=== PATIENT | male | born 1985 | race Caucasian/White ===

== ENCOUNTER 2019-07-06 14:04 | Emergency (ER) | payer MEDICAID ==
--- NOTE | 2019-07-06 14:34 | ER Document Report ---
ED Medical Screen (RME) - General Chief Complaint: Knee Injury Stated Complaint: LEFT KNEE INJURY/PAIN Time Seen by Provider: 07/06/19 14:27 Notes: Patient is a 34-year-old male who presents emergency department with a chief complaint of left knee pain. Patient reports about 1 week ago he dislocated his left kneecap. Patient reports he immediately put it back in place. Patient reports he did have significant swelling to the area afterwards. Patient reports he is kept his leg elevated and has been icing it. Patient reports intermittent numbness below the kneecap and sometimes numbness up his leg. Patient reports that this morning his leg was purple when compared to the right. Patient reports his left knee feels very wobbly. - Related Data Allergies/Adverse Reactions: No Known Allergies Allergy (Verified 07/06/19 14:19) Home Medications: adderol Past Medical History - Social History Frequency of alcohol use: Rare Drug Abuse: None Physical Exam - Vital signs Vitals: Temp Pulse Resp BP Pulse Ox 98.2 F 97 18 147/96 H 99 07/06/19 14:07/06/19 14:07/06/19 14:07/06/19 14:07/06/19 14:09 - Extremities Notes: Left lower extremity discolored when compared to the right. Patient does have swelling to the left knee as well as the left foot. Patient does have a palpable dorsalis pedis pulse. Course - Re-evaluation Re-evalutation: 07/06/19 14:34 I have greeted and performed a rapid initial assessment of this patient. A comprehensive ED assessment and evaluation of the patient, analysis of test results and completion of the medical decision making process will be conducted by additional ED providers. - Vital Signs Vital signs: Temp Pulse Resp BP Pulse Ox 98.2 F 97 18 147/96 H 99 07/06/19 14:07/06/19 14:07/06/19 14:07/06/19 14:07/06/19 14:09
--- NOTE | 2019-07-06 15:22 | RADIOLOGY REPORT (SQ) ---
EXAM DESCRIPTION: KNEE LEFT 4 VIEW COMPLETED DATE/TIME: 07/06/2019 3:10 pm REASON FOR STUDY: LEFT KNEE PAIN, DISLOCATED PATELLA X 1 WK AGO COMPARISON: None. NUMBER OF VIEWS: Four views. TECHNIQUE: AP, lateral, and both oblique radiographic images acquired of the left knee. LIMITATIONS: None. FINDINGS: MINERALIZATION: Normal. BONES: No acute fracture or dislocation. No worrisome bone lesions. JOINT: Large joint effusion. SOFT TISSUES: Soft tissue swelling about the medial knee OTHER: No other significant finding. IMPRESSION: Significant soft tissue swelling about the medial knee with large joint effusion. No ac mitch bony abnormality. TECHNICAL DOCUMENTATION: JOB ID: [id number] [employer]- All Rights Reserved Reading location - IP/workstation name: [email or web address]
--- NOTE | 2019-07-06 15:30 | ER Document Report ---
HPI - HPI Time Seen by Provider: 07/06/19 14:27 Pain Level: 4 Notes: Patient is a 34-year-old male with no significant past medical history who presents complaining of dislocating his patella this past week and putting it back in place himself immediately s/p twist injury. Patient states that since then he has had swelling to his knee and pain when he ambulates. Pain does not radiate otherwise aside from some tingling to his anterior leg. Pain is described as sharp pain. Denies drug allergies. No other concerns or complaints at this time. Denies any headache, fever, neck pain, URI, sore throat, chest pain, palpitations, syncope, cough, shortness of breath, wheeze, dyspnea, abdominal pain, nausea/vomiting/diarrhea, urinary retention, dysuria, hematuria, loss of control of bowel or bladder, numbness, muscle paralysis, or rash. - ROS Systems Reviewed and Negative: Yes All other systems reviewed and negative - REPRODUCTIVE Reproductive: DENIES: : Past Medical History - Social History Smoking Status: Current Some Day Smoker Frequency of alcohol use: Rare Drug Abuse: None Family History: Reviewed & Not Pertinent Patient has suicidal ideation: No Patient has homicidal ideation: No Vertical Provider Document - CONSTITUTIONAL Agree With Documented VS: Yes Notes: PHYSICAL EXAMINATION: GENERAL: Well-appearing, well-nourished and in no acute distress. LUNGS: Breath sounds clear to auscultation bilaterally and equal. No wheezes rales or rhonchi. HEART: Regular rate and rhythm without murmurs, rubs, gallops. Musculoskeletal: Lt knee: + effusion noted with tenderness to the anterior and joint line b/l. No obvious ecchymosis or deformity. LROM to passive/active due to pain/swelling. Strength 5+/5. N/V intact distal. No calf tenderness. Unable to adequately assess ligaments/cartilage. Extremities: No cyanosis, clubbing, or edema b/l. Peripheral pulses 2+. Capillary refill less than 3 seconds. Tima neg b/l. NEUROLOGICAL: Normal speech, limping gait. Normal sensory, motor exams PSYCH: Normal mood, normal affect. SKIN: Warm, Dry, normal turgor, no rashes or lesions noted. Course - Re-evaluation Re-evalutation: 07/06/19 15:27 Patient is an afebrile, well-hydrated, 34-year-old male who presents to the ED with left knee pain, ?internal involvement . Vitals are acceptable without any significant tachycardia, tachypnea, or hypoxia. PE is otherwise unremarkable for any neurovascular compromise, obvious tendon/ligament rupture, obvious fracture/dislocation, septic joint. X-ray was unremarkable for any acute pathology aside from effusion. Knee immobilizer and crutches were provided today. Patient is nontoxic-appearing. Patient is able to ambulate and weight- bear although he is limping. No other labs or imaging warranted at this time based on H&P. Conservative measures otherwise for symptoms. Recheck with your PCM in 3-5 days. Schedule consult with orthopedics. Return to the ED with any worsening/concerning symptoms otherwise as reviewed in discharge. Patient is in agreement. - Vital Signs Vital signs: Temp Pulse Resp BP Pulse Ox 98.2 F 97 18 147/96 H 99 07/06/19 14:09 07/06/19 14:07/06/19 14:07/06/19 14:07/06/19 14:09 Discharge - Discharge Clinical Impression: Left knee pain Qualifiers: Chronicity: acute Qualified Code(s): M25.562 - Pain in left knee Condition: Stable Disposition: HOME, SELF-CARE Additional Instructions: Rest, Ice, Compression, Elevation Tylenol/ibuprofen as needed Light stretches daily Strength exercises as able Moist heat and massage may help F/u with your PCP in 3-5 days for a recheck Call orthopedics and schedule an appointment for further evaluation and management Return to the ED with any worsening symptoms and/or development of fever, headache, chest pain, palpitations, syncope, shortness of breath, trouble breathing, abdominal pain, n/v/d, muscle weakness/paralysis, numbness/tingling, swelling, redness, or other worsening symptoms that are concerning to you. Prescriptions: Ibuprofen [Motrin 800 mg Tablet] 800 mg PO Q8H PRN #15 tab PRN Reason: Forms: Elevated Blood Pressure, Smoking Cessation Education, Return to Work Referrals: ANDIE JAIMES JR, DO [ACTIVE PROVISIONAL STAFF] - Follow up in 3-5 days
[2019-07-06 15:56] VITALS: BP 147/91
== END 2019-07-06 15:53 | disposition home or self-care (01) ==
LOC: ER 14:04
DX: M25.562 Pain in left knee (principal); M25.462 Effusion, left knee; X50.9XXA Other and unspecified overexertion or strenuous movements or postures, initial encounter; F17.200 Nicotine dependence, unspecified, uncomplicated
CPT/HCPCS: 99283; 73564; L1830